=== PATIENT | female | born 1950 | race American Indian/Alaskan Native ===

== ENCOUNTER 2016-11-27 08:34 | Emergency (ER) | payer MEDICARE ==
[2016-11-27 09:53] LABS: Basophils % (Auto) 0.8 % (0.0-1.8); Eosinophils % (Auto) 3.9 % (0.0-4.3); Hematocrit 41.9 % (30.3-42.9); Hemoglobin 13.8 gm/dl (10.1-14.3); Mean Corpuscular HGB Conc 33 % (30-34); Mean Corpuscular Hemoglobin 28 pg (28-32); Mean Corpuscular Volume 86 fl (79-97); Platelet Count 219 K/mm3 (140-440); Red Blood Count 4.89 M/mm3 (3.65-5.03); Red Cell Distribution Width 14.6 % (13.2-15.2); White Blood Count 5.4 K/mm3 (4.5-11.0)
[2016-11-27 09:57] LABS: Bilirubin,Urine NEG (Negative); Blood,Urine NEG (Negative); Ketones,Urine NEG (Negative); Leukocyte Esterase,Urine NEG (Negative); Nitrite,Urine NEG (Negative); Protein,Urine <15 mg/dL mg/dL (Negative); RBC,Urine < 1.0 /HPF (0.0-6.0); Urobilinogen,Urine < 2.0 mg/dL (<2.0); WBC,Urine < 1.0 /HPF (0.0-6.0)
[2016-11-27 10:08] LABS: Alanine Aminotransferase 19 units/L (7-56); Albumin 4.6 g/dL (3.9-5); Albumin/Globulin Ratio 1.6 %; Alkaline Phosphatase 62 units/L (35-129); Anion Gap 18 mmol/L; Blood Urea Nitrogen 18 mg/dL (7-17); Calcium 9.9 mg/dL (8.4-10.2); Carbon Dioxide 27 mmol/L (22-30); Chloride 101.1 mmol/L (98-107); Glucose 95 mg/dL (65-100); Potassium 4.2 mmol/L (3.6-5.0); Sodium 142 mmol/L (137-145); Total Protein 7.4 g/dL (6.3-8.2)
--- NOTE | 2016-11-27 10:53 | Cat Scan Report ---
CT HEAD WITHOUT CONTRAST: HISTORY: Dizziness. Serial contiguous axial images were obtained through the cranium. Intravenous contrast material was not administered. The ventricles are normal in size and appearance. There is no mass effect or midline shift. No areas of abnormally increased or decreased attenuation are seen. No mass lesion is seen. The mastoid air cells and visualized portions of the sinuses are normal. Chronic right medial orbital wall fracture is noted. IMPRESSION: Cranial CT scan within normal limits. No significant change since 08/29/16.
[2016-11-27] MEDS ORDERED: ANTIVERT PO ONE ×2 (17:07→18:02)
[2016-11-27] MEDS ORDERED: NACL 0.9% 1000 ML 1,000 ML IV ONE (17:07)
--- NOTE | 2016-11-27 17:52 | Emergency Department Report ---
ED Dizziness HPI - General Chief Complaint: Dizziness Stated Complaint: DIZZINESS Time Seen by Provider: 11/27/16 16:53 Source: patient Mode of arrival: Wheelchair Limitations: Other - History of Present Illness Initial Comments: 66-year-old female with a past medical history of breast cancer currently in remission, elevated cholesterol, and hypertension presents to the hospital complains of sudden onset of dizziness this a.m. Upon getting out of the bed early this morning patient felt lightheaded and had difficulty ambulating due to dizziness. She denies some spinning sensation, blurred vision, nausea, vomiting, diarrhea, tinnitus, melena, hematochezia, shortness of breath, chest pain, or abdominal pain. Good by mouth intake reported. No focal deficits reported. not currently on coumadin - Related Data Home Medications Medication Instructions Recorded Confirmed Last Taken Diclofenac Dr [Luis Dr] 1 tab PO BID 11/02/13 11/02/13 11/02/13 Furosemide [Lasix] 1 tab PO DAILY 11/02/13 11/02/13 11/02/13 [place]-3 Fatty Acids/Fish Oil [Fish 1 tab PO DAILY 11/02/13 11/02/13 11/02/13 Oil] Potassium Chloride [Potassium 1 tab PO DAILY 11/02/13 11/02/13 11/02/13 Chloride] Warfarin [Coumadin] 1 tab PO DAILY 11/02/13 11/02/13 10/30/13 Previous Rx's Medication Instructions Recorded Last Taken Type Acetaminophen/Codeine [Tylenol 1 tab PO BID PRN #6 tablet 08/29/16 Unknown Rx /Codeine # 3 tab] Meclizine [Antivert] 25 mg PO TID PRN #30 tablet 11/27/16 Unknown Rx Allergies Allergy/AdvReac Type Severity Reaction Status Date / Time No Known Allergies Allergy Verified 08/29/16 15:36 ED Review of Systems ROS: Stated complaint: DIZZINESS Other details as noted in HPI Comment: All other systems reviewed and negative Other: Constitutional: No fevers chills Eyes: No eye pain visual changes or discharge ENT: No ear pain or throat pain Neck: Denies pain Respiratory: Denies cough wheezing shortness of breath Cardiovascular: Denies chest pain, palpitations, syncope GI: Denies abdominal pain, nausea, vomiting, diarrhea : Denies dysuria Musculoskeletal: Denies back pain, joint swelling Skin: Denies rash, lesions, erythema Neurologic: Denies headache, numbness, weakness Psychiatric: Denies suicidal ideation, hallucinations ED Past Medical Hx - Past Medical History Previous Medical History?: Yes Hx Hypertension: Yes Hx of Cancer: Yes (L Breast CA 2001, in remission) Hx Arthritis: Yes Additional medical history: high cholesterol - Surgical History Past Surgical History?: Yes Hx Breast Surgery: Yes (LEFT BREAST RECONSTRUCTION 2001) Additional Surgical History: HYSTERECTOMY - Social History Smoking Status: Never Smoker Substance Use Type: None - Medications Home Medications: Home Medications Medication Instructions Recorded Confirmed Last Taken Type Diclofenac Dr [Voltaren Dr] 1 tab PO BID 11/02/13 11/02/13 11/02/13 History Furosemide [Lasix] 1 tab PO DAILY 11/02/13 11/02/13 11/02/13 History [place]-3 Fatty Acids/Fish Oil [Fish 1 tab PO DAILY 11/02/13 11/02/13 11/02/13 History Oil] Potassium Chloride [Potassium 1 tab PO DAILY 11/02/13 11/02/13 11/02/13 History Chloride] Warfarin [Coumadin] 1 tab PO DAILY 11/02/13 11/02/13 10/30/13 History Acetaminophen/Codeine [Tylenol 1 tab PO BID PRN #6 tablet 08/29/16 Unknown Rx /Codeine # 3 tab] Meclizine [Antivert] 25 mg PO TID PRN #30 tablet 11/27/16 Unknown Rx ED Physical Exam - General Limitations: Other - Other Other exam information: General: No limitations, patient is alert in no acute distress Head exam: Atraumatic, normocephalic Eyes exam: Normal appearance, pupils equal reactive to light, extraocular movements intact ENT: Moist mucous membrane, normal oropharynx Neck exam: Normal inspection, full range of motion, no meningismus nontender Respiratory exam: Clear to auscultation bilateral, no wheezes, rales, crackles Cardiovascular: Normal rate and rhythm, normal heart sounds Abdomen: Soft, nondistended, and nontender, with normal bowel sounds, no rebound, or guarding Extremity: Full range of motion normal inspection no deformity, no calf tenderness or edema Back: Normal Inspection, full range of motion, no tenderness Neurologic: Alert, oriented x3, cranial nerves intact, no motor or sensory deficit, [id number] function intact Psychiatric: normal affect, normal mood Skin: Warm, dry, intact ED Course Vital Signs 11/27/16 11/27/16 11/27/16 08:55 17:59 18:15 Temperature 97.7 F Pulse Rate 76 60 Pulse Rate [ 63 Lying] Pulse Rate [ 58 L Sitting] Pulse Rate [ 64 Standing] Respiratory 18 16 Rate Blood Pressure 157/102 Blood Pressure 148/58 [Lying] Blood Pressure 148/88 [Right] Blood Pressure 157/90 [Sitting] Blood Pressure 158/89 [Standing] O2 Sat by Pulse 99 98 Oximetry ED Medical Decision Making - Lab Data Result diagrams: 11/27/16 09:30 11/27/16 09:30 Lab Results 11/27/16 11/27/16 11/27/16 Range/Units 09:15 09:30 09:30 WBC 5.4 (4.5-11.0) K/mm3 RBC 4.89 (3.65-5.03) M/mm3 Hgb 13.8 (10.1-14.3) gm/dl Hct 41.9 (30.3-42.9) % MCV 86 (79-97) fl MCH 28 (28-32) pg MCHC 33 (30-34) % RDW 14.6 (13.2-15.2) % Plt Count 219 (140-440) K/mm3 Lymph % (Auto) 47.0 H (13.4-35.0) % Cache % (Auto) 9.4 H (0.0-7.3) % Eos % (Auto) 3.9 (0.0-4.3) % Baso % (Auto) 0.8 (0.0-1.8) % Lymph # 2.5 (1.2-5.4) K/mm3 Cache # 0.5 (0.0-0.8) K/mm3 Eos # 0.2 (0.0-0.4) K/mm3 Baso # 0.0 (0.0-0.1) K/mm3 Seg Neutrophils % 38.9 L (40.0-70.0) % Seg Neutrophils # 2.1 (1.8-7.7) K/mm3 Sodium 142 (137-145) mmol/L Potassium 4.2 (3.6-5.0) mmol/L Chloride 101.1 (98-107) mmol/L Carbon Dioxide 27 (22-30) mmol/L Anion Gap 18 mmol/L BUN 18 H (7-17) mg/dL Creatinine 0.9 (0.7-1.2) mg/dL Estimated GFR > 60 ml/min BUN/Creatinine Ratio 20.00 % Glucose 95 (65-100) mg/dL Calcium 9.9 (8.4-10.2) mg/dL Total Bilirubin 0.40 (0.1-1.2) mg/dL AST 21 (5-40) units/L ALT 19 (7-56) units/L Alkaline Phosphatase 62 (35-129) units/L Total Protein 7.4 (6.3-8.2) g/dL Albumin 4.6 (3.9-5) g/dL Albumin/Globulin Ratio 1.6 % Urine Color Straw (Yellow) Urine Turbidity Clear (Clear) Urine pH 7.0 (5.0-7.0) Ur Specific [place] 1.005 (1.003-1.030) Urine Protein <15 mg/dl (Negative) mg/dL Urine Glucose (UA) Neg (Negative) mg/dL Urine Ketones Neg (Negative) mg/dL Urine Blood Neg (Negative) Urine Nitrite Neg (Negative) Urine Bilirubin Neg (Negative) Urine Urobilinogen < 2.0 (<2.0) mg/dL Ur Leukocyte Esterase Neg (Negative) Urine WBC (Auto) < 1.0 (0.0-6.0) /HPF Urine RBC (Auto) < 1.0 (0.0-6.0) /HPF U Epithel Cells (Auto) < 1.0 (0-13.0) /HPF - EKG Data -: EKG Interpreted by Me (sinus rate [address]-T wave inversion) - EKG Data When compared to previous EKG there are: previous EKG unavailable - Radiology Data Radiology results: report reviewed (head: No acute findings chronic right medial orbital wall fracture unchanged from August 2016 CT) - Medical Decision Making Plan to discharge patient home. She feels better and is able to ambulate after receiving normal saline and meclizine. I suspect the patient does have peripheral vertigo and will be treated as such and encouraged to follow-up with primary care doctor. - Differential Diagnosis vertigo, CVA, dehydration, anemia Critical Care Time: No Critical care attestation.: If time is entered above; I have spent that time in minutes in the direct care of this critically ill patient, excluding procedure time. ED Disposition Clinical Impression: Dizziness Disposition: DISCHARGED TO HOME OR SELFCARE Is pt being admited?: No Does the pt Need Aspirin: No Condition: Stable Instructions: Dizziness (ED) Additional Instructions: Take the medication as prescribed. Return if symptoms worsen. Follow up with your doctor Prescriptions: Meclizine [Antivert] 25 mg PO TID PRN #30 tablet PRN Reason: Vertigo Referrals: PRIMARY CARE, [Primary Care Provider] - 3-5 Days Time of Disposition: 20:35
[2016-11-27 19:02] VITALS: BP 148/88
== END 2016-11-27 20:52 | disposition home or self-care (01) ==
LOC: ED 08:34
DX: R42 Dizziness and giddiness (principal); I10 Essential (primary) hypertension; C50.912 Malignant neoplasm of unspecified site of left female breast; Z90.710 Acquired absence of both cervix and uterus; M19.90 Unspecified osteoarthritis, unspecified site; E78.00 Pure hypercholesterolemia, unspecified
CPT/HCPCS: 36415; 70450; 80053; 81001; 85025; 87086; 93005; 93010; 96360; 99284; J7030